=== PATIENT | male | born 2000 | race African-American/Black ===

== ENCOUNTER 2023-11-01 21:41 | Emergency (ER) | payer OTHER, SELFPAY ==
[~2023-11-01] VITALS: Ht 195.6 cm; Wt 124.7 kg
[2023-11-01 22:30] LABS: BASO # 0.1 10^3/uL (0.0-0.2); BASO % 0.4 % (0.0-1.0); EOS # 0.2 10^3/uL (0.0-0.5); EOS % 1.2 % (0.0-3.0); HEMOGLOBIN 15.3 g/dl (13.5-17.5); LYMPH # 3.3 10^3/uL (1.5-5.0); MEAN CORPUSCULAR HEMOGLOBIN 27.1 pg (27.0-33.0); MEAN CORPUSCULAR HGB CONC 34.8 g/dl (32.0-36.5); MEAN CORPUSCULAR VOLUME 77.9 fl (80.0-96.0); MONO # 1.3 10^3/uL (0.0-0.8); MONO % 9.2 % (2.0-8.0); NEUTROPHILS # 9.5 10^3/uL (1.5-8.5); NEUTROPHILS % 65.8 % (36.0-66.0); PLATELET COUNT, AUTOMATED 307 10^3/uL (150-450); RED BLOOD COUNT 5.65 10^6/uL (4.30-6.10); WHITE BLOOD COUNT 14.4 10^3/uL (4.0-10.0)
[2023-11-01 22:59] LABS: CK-MB VALUE MASS 2.3 NG/ML (<3.6); LIPASE 29 U/L (12-53)
[2023-11-01 23:01] LABS: ALBUMIN 4.6 G/DL (3.2-5.2); ALKALINE PHOSPHATASE 80 U/L (46-116); ALT/SGPT 32 U/L (7.0-40); AST/SGOT 28 U/L (<34); BILIRUBIN,DIRECT 0.1 MG/DL (<0.4); BILIRUBIN,TOTAL 0.3 MG/DL (0.3-1.2); BLOOD UREA NITROGEN 16 MG/DL (9-23); CALCIUM LEVEL 9.8 MG/DL (8.5-10.1); CARBON DIOXIDE LEVEL 32 MMOL/L (20-31); CHLORIDE LEVEL 104 MMOL/L (98-107); CREATININE FOR GFR 0.91 MG/DL (0.70-1.30); GLOMERULAR FILTRATION RATE > 60.0 (>60); GLUCOSE, FASTING 84 MG/DL (60-100); POTASSIUM SERUM 4.4 MMOL/L (3.5-5.1); SODIUM LEVEL 141 MMOL/L (136-145); TOTAL PROTEIN 7.9 G/DL (5.7-8.2)
[2023-11-01 23:04] LABS: CPK CREATINE PHOSPHOKINASE 626 U/L (46-171); MB/CK RELATIVE INDEX 0.36 (< OR =4)
[2023-11-02 01:04] LABS: CK-MB VALUE MASS 2.7 NG/ML (<3.6); MB/CK RELATIVE INDEX 0.42 (< OR =4)
[2023-11-02 09:45] VITALS: BP 116/69; TEMP 98.5; O2SAT 99
== END 2023-11-02 10:01 | disposition home or self-care (01) ==
LOC: M ED 21:41
DX: R07.89 Other chest pain (principal); R74.8 Abnormal levels of other serum enzymes; I49.40 Unspecified premature depolarization